=== PATIENT | female | born 1965 | race Caucasian/White ===

== ENCOUNTER 2024-02-26 10:35 | Inpatient (IN) | payer BC, SELFPAY ==
[2024-02-26] VITALS (11 sets, daily range): BP systolic 111–157; BP diastolic 55–88; BMI 22.6; BMI 21.8
--- NOTE | 2024-02-26 06:24 | ED.GENMED ---
History of Present Illness
General
Chief Complaint: Nasal Problem
Source: patient
Exam Limitations: none
Time Seen by Provider: 02/26/24 06:13
History of Present Illness
History of Present Illness:
See MDM
Past History
Past History
ED Past Medical History: Valvular disease and Other (agree with documented PMHX)
ED Past Surgical History: Cardiac (Bovine mitral valve replacement, 2005. Tricuspid valve repair. Atrial flutter ablation May 2006), Gynecological, Orthopedic (Carpal tunnel release left wrist) and Other (Breast lumpectomies, benign. Umbilical
hernia repair 08/2013.)
Social History
Tobacco: Non-smoker
Alcohol: None
Personal:
Living: with family
Employment: Employed
Family History
Family History: Hypertension
Phy Exam
Physical Exam
Physical Exam:
See MDM
Course
Orders/Labs/Results
Orders:
Orders
02/26/24 07:09
Type+Screen Urgent
Complete Blood Count/With Diff Urgent
Comprehensive Metabolic Panel Urgent
PTT Urgent
Prothrombin Time Urgent
02/26/24 07:17
ABO2 Urgent
BBK Wristband Number:
Associate notified that ABO2 has been ordered: [id number]
Date: 02/26/24
Time: 07:16
Glazier Artist ID: [id number]
02/26/24 07:24
Consult ENT [ENT CONSULT] Urgent
Consulting Provider: Trey Che
Was physician already notified: Yes
02/26/24 07:42
Morphine Sulfate 4 mg IV NOW STA
Ondansetron Injectable [Zofran] 4 mg IV NOW STA
02/26/24 07:46
Acetaminophen [Tylenol] 1,000 mg .ROUTE .STK-MED ONE
02/26/24 07:48
Acetaminophen [Tylenol] 1,000 mg PO NOW STA
Abnormal Lab Results
02/26/24
07:09
RBC 4.01 L 10^6/uL
(4.20-5.40)
Hgb 11.9 L g/dL
(12.0-16.0)
Hct 36.8 L %
(37.0-47.0)
MCHC 32.3 L g/dL
(33.0-37.0)
MPV 11.0 H fL
(7.4-10.4)
Absolute Lymphs (auto) 3.6 H 10^3/uL
(1.2-3.4)
Creatinine 0.5 L mg/dL
(0.6-1.0)
02/26/24 07:09
02/26/24 07:09
Vital Signs
Initial and Last Documented VS:
Initial Vital Signs
Pulse Resp BP Pulse Ox
71 18 157/88 98
02/26/24 06:11 02/26/24 06:11 02/26/24 06:11 02/26/24 06:11
Last Documented Vital Signs
Pulse Resp BP Pulse Ox
69 15 142/74 95
02/26/24 07:18 02/26/24 07:18 02/26/24 08:00 02/26/24 08:00
Procedures
Nosebleed
Drug treatment: Lidocaine and Epinephrine
Treatment: Posterior balloon
Post treatment bleeding: still some oozing
MDM/Problems Addressed
Differential Diagnosis Includes:
HPI and MDM Narrative:
58-year-old female presenting with significant nosebleed. Patient states this is her fourth nosebleed in the past week. She is on aspirin and Brilinta. Patient was told that if she has another nosebleed to go to the emergency department
immediately for cauterization. Patient was brought back immediately and has significant bleeding from the right nare. Patient states the blood is going down her throat and she is coughing up blood. Given the active hemorrhage, a nasal tampon was
placed immediately in her nose. It was soaked with lidocaine with epinephrine. This significantly slow down the bleeding
Physical exam
General: Mildly anxious but nontoxic-appearing
HEENT: protecting airway. Significant active bleeding from right nare
Neck: appears supple
CV: No evidence of cyanosis
Resp: No accessory muscle use
Abd: Non-distended
Extremities: No deformities
Neuro: alert
Psych: Anxious
Skin: Intact
Problems Addressed including Acute and Chronic Conditions affecting care:
1. Epistaxis
Acuity: acute
Prognosis: unstable
Details: Given the active hemorrhage, nasal tampon placed immediately
2. [ ]
Acuity: acute
Prognosis: stable
Details:
3. [ ]
Acuity: acute
Prognosis: stable
Details:
4. [ ]
Acuity: acute
Prognosis: stable
Details:
5. [ ]
Acuity:
Prognosis:
Details:
Updates
Patient continued to bleed through the 7.5 cm Rhino Rocket that was pretty soaked in lidocaine with epinephrine. Because of this, the decision was made to place the posterior packing. The posterior balloon and anterior balloon were both inflated.
Patient continues to bleed through the posterior packing. However, the bleeding has drastically improved and decreased by approximately 90 to 95%. Due to the persistent bleeding despite posterior packing, ENT made aware
8:55 AM Case discussed with ENT after evaluating the patient. Bleeding has drastically improved. We discussed admitting overnight for evaluation and starting Augmentin and holding Brilinta
Differential Diagnosis (but not limited to): Anterior nosebleed, posterior nose
Testing considered: Hemoglobin testing
Drug therapy (if applicable): OTC meds, please see d/c instruction regarding Rx drugs
Amount and/or Complexity of Data Reviewed
Clinical info obtained from: Patient
External data reviewed: N/A
Labs I independently reviewed (but not limited to): Mild anemia
Radiology: N/A
Pulse Ox: not hypoxic
EKG independently reviewed: N/A
Knitter Machine: N/A
Critical Care: N/A
Risk of Complication:
Social Determinants of health: Good social support
Discussed with other providers: ENT, hospitalist
Escalation of Care includes Admit/Obs: Given the significant amount of bleeding requiring posterior packing, will admit overnight for further evaluation
Occasional wrong word or 'sound a like' substitutions may have occurred due to the inherent limitations of voice recognition software. Read the chart carefully and recognize, using context, where substitutions have occurred.
*Critical Care Note
Total Time (30-74mins, 75-104mins- exclusive of procedures): Not Applicable
ED Attending Note
-
Portions of this chart may have been created with voice recognition software.� Occasional wrong word or��sound alike� substitutions may have occurred due to the inherent limitations of voice recognition software.
Discharge Plan
Departure
Patient Disposition: Admit
Date of Disposition: 02/26/24
Time of Disposition: 08:56
Admit to: Med/Surg
Presentation/result/management discussed w/ accepting MD/DO: Hospitalist
Discharge Problem:
Epistaxis
Prescriptions:
No Action
aspirin [Colleen Chewable Aspirin] 81 MG tablet,chewable
81 mg PO DAILY
infliximab [Remicade] 100 MG/10 ML recon soln
100 mg IV .[id number]
atorvastatin [Lipitor] 10 mg Tablet
20 mg PO DAILY
Brilinta 90 mg Tablet
90 mg PO BID
Referrals:
Carlo Fisher CRNP [Family Provider] -
Interventions
Interventions:
*Risk Screen - Suicide Last Done: 02/26/24 08:15
*General Assessment Last Done: 02/26/24 06:28
*Neglect/Abuse Screening Last Done: 02/26/24 08:15
ED- Fall Risk Assessment Last Done: 02/26/24 07:15
*ED COVID-19 Vaccine History Last Done: 02/26/24 06:28
ED-EENT Assessment Last Done: 02/26/24 07:15
Discharge Date and Time
Print Language: CZECH
[2024-02-26 07:19] LABS: % Basophils 1.3 % (0-2); % Immature Granulocytes 0.5 % (0-0.5); % Lymphocytes 43.1 % (20.5-51.1); % Monocytes 6.9 % (1.7-9.3); % Neutrophils 46.2 % (42.2-75.2); Absolute Basophils 0.1 10^3/uL (0-0.2); Absolute Eosinophils 0.2 10^3/uL (0-0.7); Absolute Lymphocytes 3.6 10^3/uL (1.2-3.4); Absolute Monocytes 0.6 10^3/uL (0.1-0.6); Absolute Neutrophils 3.9 10^3/uL (1.4-6.5); Hematocrit 36.8 % (37.0-47.0); Hemoglobin 11.9 g/dL (12.0-16.0); Mean Corp Hgb Conc. 32.3 g/dL (33.0-37.0); Mean Corpuscular Hgb 29.7 pg (27.0-31.0); Mean Corpuscular Volume 91.8 fL (81.0-99.0); Nucleated Red Blood Cells % 0 %; Platelet Count 208 10^3/uL (130-400); Red Blood Cell Count 4.01 10^6/uL (4.20-5.40); Red Cell Dist. Width 12.2 % (11.5-14.5); White Blood Cell Count 8.4 10^3/uL (4.8-10.8)
[2024-02-26 07:26] LABS: INR 0.94; PT 12.9 Sec (11.4-14.6)
[2024-02-26 07:27] LABS: APTT 27.3 Sec (23.4-35.0)
[2024-02-26 07:30] LABS: ALT (SGPT) 19 U/L (0-35); AST (SGOT) 28 U/L (14-36); Alkaline Phosphatase 52 U/L (38-126); Blood Urea Nitrogen 16 mg/dl (7-17); Calcium 9.3 mg/dl (8.4-10.2); Carbon Dioxide 27 mmol/L (22-30); Chloride 107 mmol/L (98-107); Estimated Creatinine Clearance 85 ml/min; Glucose 99 mg/dl (70-99); Sodium 142 mmol/L (135-145); Total Protein 6.6 g/dl (6.3-8.2); eGFR > 60.00
[2024-02-26] MEDS: TYLENOL 1000 MG PO (07:48)
[2024-02-26] MEDS: AUGMENTIN 875 MG/125 MG 1 TABLET PO (09:00)
--- NOTE | 2024-02-26 09:29 | CON.MD ---
Consultation - Medical
-
Chief complaint: Severe epistaxis
History of present illness: This is a 58-year-old woman with a history of open cardiac surgery with mitral valve replacement as well as a coronary stent. She is currently anticoagulated with Eliquis and has been for the last 3 months. Recently she
has been experiencing nosebleeds that she finds primarily occur when she gets out of bed. She has a history of nosebleeds in the distant past and also has a history of prior sinus surgery 30 years ago. This morning she presented to the emergency
room with a severe nosebleed on the right side which would not stop. Her nose was packed a couple of times and finally a posterior balloon pack has controlled the bleeding for the most part. The patient continued to ooze a little bit off and on.
She is otherwise doing well. The pack on the right side is uncomfortable and she can feel that it interferes with her swallowing a little bit. She continues to ooze blood a little bit off and on. The patient also has a history of Crohn's disease.
She underwent cardiac stent placement about 4 months ago. She had undergone stent placement in the past.
Past medical history:
Illnesses: Epistaxis, acute diverticulitis, coronary artery disease, hyperlipidemia, acute Crohn's disease,
Allergies: Lactose causes cramping diarrhea and gas, morphine and hydromorphone caused vomiting
Family history: Asked and is noncontributory
Hospitalization: The patient is currently hospitalized for severe epistaxis requiring packing with continued oozing off and on.
Home medications: Aspirin 81 mg p.o. daily, a atorvastatin 20 mg p.o. daily, Remicade 100 mg IV q. 7 weeks, Brilinta 90 mg p.o. twice daily
Surgical history: The patient had sinus surgery 30 years ago
Review of systems: Recent recurrent epistaxis on the right side with severe bleeding this morning, currently has packing in place with a small amount of oozing, some discomfort with nasal packing
Physical examination:
Head: Atraumatic and normocephalic
Eyes: Extraocular movements are intact, pupils are equal and reactive to light
Ears: Normal
Nose: Balloon packing in place on the right side with minimal occasional ooze, some blood in left nostril along with mucus
Oral cavity/oropharynx: Very small amount of clotted blood in oropharynx
Neck: Supple without adenopathy
Thyroid gland: Normal to exam
Salivary glands: Normal to exam
Cranial nerves II through XII: Intact
Impression/plan: This 58-year-old woman has a history of cardiac disease and is status post several cardiac surgeries as well as stent placement. She is chronically anticoagulated with Brilinta. She has been experiencing recurrent bleeding from
the right nose and experienced a severe bleed this morning requiring a posterior pack placement. She continues to ooze a little bit off and on. I discussed with the emergency room staff and with the patient that this oozing off and on is normal in
some people for a while after the packing is placed particularly if they are anticoagulated. I suggested that the patient be admitted for observation with minimal activity. Her Brilinta should be held for several days. I will plan on following
the patient.
--- NOTE | 2024-02-26 10:05 | HPS.HSE ---
Family Physician
-
Family Physician: GISELLE Duval
Chief Complaint
-
Nosebleed
History of Present Illness
Patient is a 58-year-old female with past medical history of coronary artery disease status post PCI/stenting, last in 26 october in hospital on [place], history of SVT/a flutter with multiple ablations, history of mitral valve insufficiency
status post repair with revision x 2, history of Crohn's disease on Remicade, remote history of epistaxis, hyperlipidemia came to ER with new onset of epistaxis. Patient has been dealing with worsening nosebleed for last for 4-5 days. Patient
continue to have worsening nosebleed with some postnasal drip and came to ER for further evaluation. Patient have history of multiple cardiac issues and have undergone PCI/stent placement on October 19 in hospital in [place]. Patient was
maintained on aspirin and Brilinta as part of the post catheter regimen. Patient is denying any episodes of cough/fever/dyspnea.
No other reported abdominal pain/nausea/vomiting/diarrhea. No complains.
Medical History
Past Medical History
Past Medical History: Reports Other
Additional Past Medical History:
coronary artery disease status post PCI/stenting, last in 26 october in hospital on [place], history of SVT/a flutter with multiple ablations, history of mitral valve insufficiency status post repair with revision x 2, history of Crohn's
disease on Remicade, remote history of epistaxis, hyperlipidemia
Past Surgical History: Reports Other
Social History
Tobacco: Non-smoker
Alcohol: None
Drug: None
Personal:
Living: With Family
Family History
Family History: Not pertinent
Allergies / Home Medications
Allergies reflects when Allergies were last updated in codetag.
Home Medications with original date entered in codetag
Allergy/Medication List:
Allergies
Allergy/AdvReac Type Severity Reaction Status Date / Time
lactose Allergy Intermediate Diarrhea, Verified 02/26/24 06:11
cramping,
gas
hydromorphone HCl Allergy Unknown Vomiting Verified 02/26/24 06:11
[From Dilaudid]
morphine Allergy Vomiting Verified 02/26/24 06:11
Home Medications
aspirin 81 mg chewable tablet (Colleen Chewable Low Dose Aspirin) 81 mg PO DAILY 01/26/14
infliximab 100 mg intravenous solution (Remicade) 100 mg IV .[id number] 12/26/17
atorvastatin 10 mg tablet (Lipitor) 20 mg PO DAILY 10/19/22
ticagrelor 90 mg tablet (Brilinta) 90 mg PO BID 02/26/24
Review of Systems
-
A 12 point ROS was completed and negative except as noted: Yes
Physical Exam
Vital Signs
Vital Signs
Pulse Resp BP Pulse Ox
69 15 111/78 96
02/26/24 07:18 02/26/24 07:18 02/26/24 09:00 02/26/24 09:00
Physical Exam
HEENT: Other (Right nostril packing in place, fresh blood on the gauze, minimal blood covering posterior oropharynx)
Respiratory: Clear
Cardiac: S1/S2 and Regular Rhythm; No Murmur or Rub
GI: Soft, Non Tender, Non Distended and Normal Bowel Sounds; No Organomegaly
Rectal: Deferred by Provider
Musculoskeletal: No Clubbing, No Cyanosis and No Edema
Skin: No Rash
Neuro: Nonfocal/grossly intact
Laboratory Results
-
02/26/24 07:09
02/26/24 07:09
Laboratory Results
PT 12.9 Sec (11.4-14.6) 02/26/24 07:09
INR 0.94 02/26/24 07:09
APTT 27.3 Sec (23.4-35.0) 11/30/24 07:09
Total Bilirubin 1.0 mg/dl (0.2-1.3) 02/26/24 07:09
AST 28 U/L (14-36) 02/26/24 07:09
ALT 19 U/L (0-35) 02/26/24 07:09
Alkaline Phosphatase 52 U/L (38-126) 02/26/24 07:09
Impression/Plan
-
1. Epistaxis
remote history of epistaxis
-Significant ruben bleeding from nose. Reported postnasal drip as well
-Likely exacerbated by aspirin/Brilinta
-Patient have undergone stent placement (presuming SAIRA) on October 26, 24 - 4months today from stent placement
-will need to resume back antiplatelets once bleeding resolved
-Hemoglobin stable at 12, expect to drift down a few points
-Nasal packing has been done by ER physician and patient has been evaluated in ER by ENT
-Maintain on clear liquid diet and can be advanced to regular diet later at supper if bleeding improved.
-Patient to be monitored here in hospital overnight
2. coronary artery disease status post PCI/stenting
-last in 26 october in hospital on [place]
-Aspirin/Brilinta to be held as mentioned above.
-Monitor for any cardiac complains.
history of SVT/a flutter with multiple ablations
history of mitral valve insufficiency status post repair with revision x 2
history of Crohn's disease on Remicade
hyperlipidemia
DVT PPX - scd
Full code
Patient at high risk of further complication of epistaxis related issues due to need of dual antiplatelet therapy
Total time spent : 78 mins
I personally saw and examined the patient.
I have reviewed all diagnostic interpretations and treatment plans as written.
Time includes patient management by me, time spent at the patients bedside, time to review lab and imaging results, discussing patient care, documentation in the medical record, and time spent with the family or caregiver and discussing care plan
with RN/Consultants.
[2024-02-26] MEDS: ZOFRAN 4 MG IV (10:55)
[2024-02-26] MEDS: NSS (PRESERVATIVE FREE) 10 ML IV (12:24)
[2024-02-26] MEDS: PROTONIX IV 40 MG IV (12:25)
--- NOTE | 2024-02-26 13:08 | PTCARENOTE ---
Received patient from ED on stretcher. Walked from stretcher to bed with standby assist. Placed on tel #[phone] A paced. AAO x3 able to make needs known. R nare with posterior balloon packing in place with CDD, no active drainage noted. VSS POX 98% RA.
Oriented to room and use of call florence. As per patient request Cristiano suction set up at bedside. PRN Tylenol given for headache.
[2024-02-26] MEDS: TYLENOL 650 MG PO ×2 (13:33→22:46)
--- NOTE | 2024-02-26 20:47 | PTCARENOTE ---
Addendum entered by Sharon Nick RN 02/27/24 02:23:
Pt external gauze dressing changed due to being saturated and leaking blood. Pt right nare has visible clots. Dressing changed without complications or active bleeding and remains CDI. Pt educated on notifying RN deloris if bleeding continues.
Original Note:
Pt rang call florence for nose bleed restarting. STOPPERER ASSEMBLER notified and requested at bedside. Pt nose bleeding through bilateral nare balloon packing. Pressure applied and VS obtained. VSS. STOPPERER ASSEMBLER evaluated pt at bedside and notified ENT MD. After a moderate
amount of bleeding and pressure applied bleeding resolved and pt stable. Suction remains at bedside. Pt provided with ice pack as she stated it previously helped with her headache as well as the bleeding. Pt. states no further needs at this time. Pt
instructed to notify RN if bleeding starts again.
[2024-02-27 03:00] VITALS: BP 123/67
[2024-02-27] MEDS: TYLENOL 650 MG PO ×2 (05:30→19:29)
[2024-02-27 07:40] VITALS: BP 116/67
[2024-02-27 07:40] LABS: Hematocrit 33.9 % (37.0-47.0); Mean Corp Hgb Conc. 32.4 g/dL (33.0-37.0); Mean Corpuscular Hgb 30.3 pg (27.0-31.0); Mean Corpuscular Volume 93.4 fL (81.0-99.0); Mean Platelet Volume 11.1 fL (7.4-10.4); Platelet Count 185 10^3/uL (130-400); Red Blood Cell Count 3.63 10^6/uL (4.20-5.40); Red Cell Dist. Width 12.4 % (11.5-14.5); White Blood Cell Count 9.9 10^3/uL (4.8-10.8)
[2024-02-27 07:51] LABS: Blood Urea Nitrogen 10 mg/dl (7-17); Calcium 9.2 mg/dl (8.4-10.2); Carbon Dioxide 29 mmol/L (22-30); Chloride 105 mmol/L (98-107); Estimated Creatinine Clearance 85 ml/min; Glucose 96 mg/dl (70-99); Sodium 142 mmol/L (135-145); eGFR > 60.00
[2024-02-27] MEDS: LIPITOR 20 MG PO (08:14)
[2024-02-27] MEDS: NSS (PRESERVATIVE FREE) 10 ML IV (08:14)
[2024-02-27] MEDS: PROTONIX IV 40 MG IV (08:15)
--- NOTE | 2024-02-27 09:40 | W.PN.HOSP.TC ---
Today's Communication/Plan
-
see note
Assessment / Plan
Assessment / Plan
1. Epistaxis
remote history of epistaxis
-Significant ruben bleeding from nose. Reported postnasal drip as well
-Likely exacerbated by aspirin/Brilinta
-Patient have undergone stent placement (presuming SAIRA) on October 26, 24 - 4months today from stent placement
-will need to resume back antiplatelets once bleeding resolved
-Nasal packing has been done by ER physician and patient has been evaluated in ER by ENT
-Hbg trended down to 11, was 12 yesterday
-Requested patient to contact/f/u with primary cardiology to consider if DAPT can be shortened.
-Bleeding slowed down, patient hesistant to go out with concern of rebleed, monitor overnight
-diet advanced to regular diet.
2. coronary artery disease status post PCI/stenting
-last in 26 october in hospital on [place]
-Aspirin/Brilinta to be held as mentioned above.
-No chest discomfort/dyspnea/pain reported
3. Dry cough
-suspected from post nasal drip
-agreeable to try cepacol lozenges
-CXR if develops fever/hypoxia
history of SVT/a flutter with multiple ablations
history of mitral valve insufficiency status post repair with revision x 2
history of Crohn's disease on Remicade
hyperlipidemia
DVT PPX - scd
Full code
Patient at high risk of further complication of epistaxis related issues due to need of dual antiplatelet therapy
Anticipated Discharge: Within 24 hours
Subjective/Interval History
-
Date of Service: February 27, 2024
bleeding has decreased but still ongoing
some dry cough from post nasal drip
Objective Data
-
Labs:
Laboratory Results
02/27/24
06:50
WBC 9.9
Hgb 11.0 L
Hct 33.9 L
Plt Count 185
Sodium 142
Potassium 4.0
Chloride 105
Carbon Dioxide 29
BUN 10
Creatinine 0.6
Glucose 96
Calcium 9.2
Vital Signs:
Vital Signs
Temp Pulse Resp BP Pulse Ox
97.5 F 61 16 116/67 96
02/27/24 07:40 02/27/24 07:40 02/27/24 07:40 02/27/24 07:40 02/27/24 07:40
I&O
02/26/24 02/27/24 02/28/24
06:59 06:59 06:59
Intake Total 960 / 960
Balance 960 / 960
Review of Systems
-
Respiratory: Reports Cough; Denies Trouble Breathing
Cardiac: Reports No Symptoms
Abdomen/GI: Reports No Symptoms
Physical Exam
-
General: No Apparent Distress and Comfortable
HEENT: Other (Right nasal packing in place, dried blood around nares); Negative Oxygen
Respiratory: Clear to Auscultation
Cardiac: Regular Rhythm and S1/S2; Negative Murmur or Rub
Musculoskeletal: No Edema
Neuro: Awake, Alert, Oriented, No Motor Deficits and Nonfocal/Grossly Intact
Psych: Calm
--- NOTE | 2024-02-27 10:22 | CM ---
CM following re: discharge planning.
Reviewed pt's chart, met with pt.
Pt is a 58 year old female, admitted with primary dx of Epistaxis.
Pt reports she lives with son and his family in a 2SH, 1 step to enter, has 2 supportive children. Pt described herself as independent in all areas [employer], drives, works.
PCP: Cole Stacy
Pharmacy: [facility]
D/C plan: home with anticipated no needs. Family to transport at discharge.
CM will follow with discharge plan updates as hospitalization progresses
--- NOTE | 2024-02-27 10:37 | W.PN.ENT ---
Today's Communication
-
pt seen at bedside
Impression / Plan
-
doing OK s/p nasal packing in ER yesterday
not currently bleeding but has off and on mild bleeding
hold Brilinta
will observe
Subjective Data
-
small amount of bleeding off and on
not actively bleeding
balloon packing uncomfortable
Objective Data
-
Vital Signs
Temp Pulse Resp BP Pulse Ox
97.5 F 61 16 116/67 96
02/27/24 07:40 02/27/24 07:40 02/27/24 07:40 02/27/24 07:40 02/27/24 07:40
Intake & Output
02/26/24 02/27/24 02/28/24
06:59 06:59 06:59
Intake:
Oral fluids 960 / 960
Other:
Number of approximated MODERATE 4
amounts of urine
Lab Results
02/27/24 06:50
02/27/24 06:50
PT 12.9 Sec (11.4-14.6) 02/26/24 07:09
INR 0.94 02/26/24 07:09
APTT 27.3 Sec (23.4-35.0) 02/26/24 07:09
Calcium 9.2 mg/dl (8.4-10.2) 02/27/24 06:50
Total Bilirubin 1.0 mg/dl (0.2-1.3) 02/26/24 07:09
AST 28 U/L (14-36) 02/26/24 07:09
ALT 19 U/L (0-35) 02/26/24 07:09
Alkaline Phosphatase 52 U/L (38-126) 02/26/24 07:09
Physical Exam
-
packing in place
no active bleeding
Chest: Clear
Respiratory: Clear
Data Reviewed
-
Radiology Results: Report Reviewed
[2024-02-27 11:40] VITALS: BP 113/49
[2024-02-27 15:40] VITALS: BP 124/59
[2024-02-27] MEDS: ANESTHETIC LOZENGE 1 LOZENGE PO (15:46)
[2024-02-27 19:14] VITALS: BP 113/59
[2024-02-27 22:45] VITALS: BP 105/62
[2024-02-28 04:02] VITALS: BP 124/58
[2024-02-28] MEDS: TYLENOL 650 MG PO ×3 (05:54→20:37)
[2024-02-28 07:10] LABS: Hemoglobin 10.9 g/dL (12.0-16.0); Mean Corpuscular Hgb 29.9 pg (27.0-31.0); Mean Corpuscular Volume 90.7 fL (81.0-99.0); Mean Platelet Volume 11.2 fL (7.4-10.4); Platelet Count 184 10^3/uL (130-400); Red Blood Cell Count 3.64 10^6/uL (4.20-5.40); Red Cell Dist. Width 12.2 % (11.5-14.5); White Blood Cell Count 11.9 10^3/uL (4.8-10.8)
[2024-02-28 07:22] LABS: Blood Urea Nitrogen 13 mg/dl (7-17); Calcium 9.1 mg/dl (8.4-10.2); Carbon Dioxide 30 mmol/L (22-30); Chloride 104 mmol/L (98-107); Estimated Creatinine Clearance 85 ml/min; Glucose 103 mg/dl (70-99); Sodium 141 mmol/L (135-145); eGFR > 60.00
[2024-02-28 07:45] VITALS: BP 125/56
[2024-02-28] MEDS: NSS (PRESERVATIVE FREE) 10 ML IV (08:22)
[2024-02-28] MEDS: LIPITOR 20 MG PO (08:22)
[2024-02-28] MEDS: PROTONIX IV 40 MG IV (08:22)
--- NOTE | 2024-02-28 08:39 | W.PN.HOSP.TC ---
Today's Communication/Plan
-
Monitor
Assessment / Plan
Assessment / Plan
1. Epistaxis with acute blood loss anemia
remote history of epistaxis
-Significant ruben bleeding from nose. Reported postnasal drip as well
-Likely exacerbated by aspirin/Brilinta
-Patient have undergone stent placement (presuming SAIRA) on October 26, 24 - 4months today from stent placement
-will need to resume back antiplatelets once bleeding resolved
-Nasal packing has been done by ER physician and patient has been evaluated in ER by ENT
-Hbg 10.9 today, was 11, was 11.9
-Appreciate ENT input, continue holding aspirin 81 mg and Brilinta 90 mg twice a day
-Continue to monitor, trend hemoglobin
2. Coronary artery disease status post PCI/stenting
-last in 26 october in hospital on [place]
-Aspirin/Brilinta to be held as mentioned above.
-No chest discomfort/dyspnea/pain reported
3. Dry cough
-suspected from post nasal drip
-agreeable to try cepacol lozenges
4. Constipation
Start laxatives
history of SVT/a flutter with multiple ablations
history of mitral valve insufficiency status post repair with revision x 2
history of Crohn's disease on Remicade
hyperlipidemia
DVT PPX - SCDs
Full code
Total time spent to see the patient on the floor, examine the patient, review data and lab results, discuss treatment plan with patient, nursing staff around 38 minutes.
Physical Exam
General: No acute distress
HEENT: Normocephalic, Atraumatic, EOMI, MMM
Respiratory: Clear to Auscultation bilaterally
Cardiac: Normal S1/S2, Regular Rate and Rhythm
GI: Soft, Nontender, Nondistended, Normal Bowel Sounds
Extremities: No Clubbing, Cyanosis, or Edema
Neuro: Nonfocal/Grossly Intact
Psych: Calm, Cooperative
Derm: No Visible lesions
Anticipated Discharge: 24 - 48 hours
Subjective/Interval History
-
Date of Service: February 28, 2024
Complains of constipation. Also reports intermittent epistaxis with walking. No fever, no vomiting.
Objective Data
-
Labs:
Laboratory Results
02/28/24
06:44
WBC 11.9 H
Hgb 10.9 L
Hct 33.0 L
Plt Count 184
Sodium 141
Potassium 4.0
Chloride 104
Carbon Dioxide 30
BUN 13
Creatinine 0.5 L
Glucose 103 H
Calcium 9.1
Vital Signs:
Vital Signs
Temp Pulse Resp BP Pulse Ox
97.6 F 61 16 125/56 96
02/28/24 07:45 02/28/24 07:45 02/28/24 07:45 02/28/24 07:45 02/28/24 07:45
I&O
02/27/24 02/28/24 02/29/24
06:59 06:59 06:59
Intake Total 960 / 960 720 / 720 480 / 480
Balance 960 / 960 720 / 720 480 / 480
--- NOTE | 2024-02-28 11:50 | W.PN.ENT ---
Today's Communication
-
seen at bedside
Impression / Plan
-
doing OK s/p nasal packing in ER Wednesday
not currently bleeding but has off and on mild bleeding
hold Brilinta
will observe
Subjective Data
-
smonimal driping with ambulation
not actively bleeding
balloon packing uncomfortable
Objective Data
-
Vital Signs
Temp Pulse Resp BP Pulse Ox
97.6 F 61 16 125/56 96
02/28/24 07:45 02/28/24 07:45 02/28/24 07:45 02/28/24 07:45 02/28/24 07:45
Intake & Output
02/27/24 02/28/24 02/29/24
06:59 06:59 06:59
Intake:
Oral fluids 960 / 960 720 / 720 480 / 480
Other:
Number of approximated MODERATE 4 3 2
amounts of urine
Number of approximated LARGE 1
amounts of urine
Lab Results
02/28/24 06:44
02/28/24 06:44
PT 12.9 Sec (11.4-14.6) 02/26/24 07:09
INR 0.94 02/26/24 07:09
APTT 27.3 Sec (23.4-35.0) 02/26/24 07:09
Calcium 9.1 mg/dl (8.4-10.2) 02/28/24 06:44
Total Bilirubin 1.0 mg/dl (0.2-1.3) 02/26/24 07:09
AST 28 U/L (14-36) 02/26/24 07:09
ALT 19 U/L (0-35) 02/26/24 07:09
Alkaline Phosphatase 52 U/L (38-126) 02/26/24 07:09
Physical Exam
-
pack in place
no active bleeding
Chest: Clear
Respiratory: Clear
Data Reviewed
-
Radiology Results: Report Reviewed
[2024-02-28 11:55] VITALS: BP 116/55
[2024-02-28] MEDS: SENOKOT-S 2 TABLET PO ×2 (11:58→20:37)
[2024-02-28] MEDS: MIRALAX 17 GRAMS PO (11:59)
[2024-02-28 16:00] VITALS: BP 107/55
[2024-02-28] MEDS: REFRESH EYE DROPS (PF) 2 DROPS OPHTH ×2 (17:56→20:37)
[2024-02-28 19:05] VITALS: BP 112/50
[2024-02-28] MEDS: AFRIN NASAL SPRAY 2 SPRAYS NASAL (22:34)
[2024-02-28 23:06] VITALS: BP 127/58
[2024-02-28] MEDS: TRANEXAMIC ACID 100 IV (23:21)
--- NOTE | 2024-02-28 23:56 | W.PN.ENT ---
Today's Communication
-
seen at bedside
Impression / Plan
-
Balloon pack fell out before arrival
cotton ball coated with vaseline placed into nose
bleeding controlled
Subjective Data
-
called to see pt with epistaxis
bleeding for 2 hours
Objective Data
-
Vital Signs
Temp Pulse Resp BP Pulse Ox
98.0 F 65 16 127/58 97
02/28/24 19:05 02/28/24 23:06 02/28/24 23:06 02/28/24 23:06 02/28/24 23:06
Intake & Output
02/27/24 02/28/24 02/29/24
06:59 06:59 06:59
Intake:
Oral fluids 960 / 960 720 / 720 1320 / 1320
Other:
Number of approximated MODERATE 4 3 4
amounts of urine
Number of approximated LARGE 1
amounts of urine
Lab Results
02/28/24 06:44
02/28/24 06:44
PT 12.9 Sec (11.4-14.6) 02/26/24 07:09
INR 0.94 02/26/24 07:09
APTT 27.3 Sec (23.4-35.0) 02/26/24 07:09
Calcium 9.1 mg/dl (8.4-10.2) 02/28/24 06:44
Total Bilirubin 1.0 mg/dl (0.2-1.3) 02/26/24 07:09
AST 28 U/L (14-36) 02/26/24 07:09
ALT 19 U/L (0-35) 02/26/24 07:09
Alkaline Phosphatase 52 U/L (38-126) 02/26/24 07:09
Physical Exam
-
bleeding but not severe, right nose
Chest: Clear
Respiratory: Clear
Data Reviewed
-
Radiology Results: Report Reviewed
[2024-02-29] MEDS: ZOFRAN 4 MG IV (00:03)
--- NOTE | 2024-02-29 02:10 | W.PN.UPDATE ---
Addendum entered and electronically signed by GISELLE Nielsen 02/29/24 02:32:
afrin nasal spray was also attempted in right nare to slow bleeding
Original Note:
Update Note
Progress Note Update
2100 Notified by RN that pt having continuos epistaxis despite having posterior packing on place.
At bedside pt with continuos dripping and clots coming out of right nare. Posterior packing in place since 02/26/24. Since admit pt states she has had some mild oozing but this time after ambulating from bathroom bleeding has not stopped despite
putting pressure to bridge of nose and ice packs Rn states she has changed gauze under nose at least 5 times prior to my arrival. Blood is dripping down back of throat. PT is suctioning thick clots out from mouth.
[address] Patten ENT commercial litigation associate. for recommendations.
Added approx 0.4 ml to 10cc side of Posterior packing but pt could not tolerate well due to pain and pressure. PT held pressure to nares and for a few min we thought bleeding slowed, but as soon as pt released pressure, nasal dressing again
saturated.
0 TT again sent to Dr Patten (priority sent). Awaiting response. Throughout this time pt still bleeding around posterior packing . Vital signs stable throughout.
[address] patten via telephone and message left for callback deloris. No return call. After not hearing any responses- decision made to TT his colleague Dr Che who is familiar with pt. Asked if this airplane flight attendant should give pt TXA - recommends to give.
Shortly thereafter Dr che returned TT and stated he was coming in.
Shortly before Dr che's arrival pt stated posterior packing fell out of her nose (intact with balloons deflated). After that bleeding noted to slow. At bedside Dr che packed nostrils with polysporin covered cotton balls. PT was checked after
several min to see if cotton ball was sufficient to stop bleeding. No more bleeding noted.
[2024-02-29 03:10] VITALS: BP 109/56
--- NOTE | 2024-02-29 05:57 | PTCARENOTE ---
at approx 2019, pt rang call florence to alert this RN about new nosebleed after ambulating to and from the bathroom. changed gauze, applied ice to bridge of nose and back of pt's neck, instructed pt to remain in bed. By 2099, gauze was saturated and
changed multiple times, pt suctioning dime and quarter sized blood clots from her mouth, GISELLE Stewart made aware. VSS. GISELLE Stewart & GISELLE Aldana at bedside at bedside to assess patient. Pt continues to suction blood clots from mouth and also
dripping bright red blood from R nare. Awaiting response from on-call ENT. Pt's VSS. At approx 2230, Afrin spray ordered and administered, refer to MAR. Bleeding continues, saturating gauze under nares. At approx 2320, Tranexamic Acid ordered, refer
to MAR for administration. At approx 2330 pt rang call florence and alerted this RN that previous nasal packing fell out of her nose.
At approx 2330, Dr. Che at bedside and re-packed right nare with polysporin cotton balls.
Pt c/o nausea, refer to MAR for zofran administration at approx 0000.
Throughout the night, pt's gauze remains clean, no signs of active bleeding once cotton balls were placed.
Pt remains updated on POC. VSS. Call naman within reach.
[2024-02-29] MEDS: NSS (PRESERVATIVE FREE) 10 ML IV (07:40)
[2024-02-29] MEDS: MIRALAX PO ×2 (07:40→07:49)
[2024-02-29] MEDS: LIPITOR 20 MG PO (07:40)
[2024-02-29] MEDS: REFRESH EYE DROPS (PF) 2 DROPS OPHTH ×4 (07:40→21:43)
[2024-02-29] MEDS: SENOKOT-S 2 TABLET PO ×2 (07:40→20:21)
[2024-02-29] MEDS: PROTONIX IV 40 MG IV (07:41)
[2024-02-29 08:03] VITALS: BP 112/61
[2024-02-29 08:17] LABS: Hematocrit 31.2 % (37.0-47.0); Hemoglobin 10.1 g/dL (12.0-16.0); Mean Corp Hgb Conc. 32.4 g/dL (33.0-37.0); Mean Corpuscular Hgb 30.4 pg (27.0-31.0); Mean Platelet Volume 11.4 fL (7.4-10.4); Platelet Count 166 10^3/uL (130-400); Red Blood Cell Count 3.32 10^6/uL (4.20-5.40); Red Cell Dist. Width 12.4 % (11.5-14.5); White Blood Cell Count 11.2 10^3/uL (4.8-10.8)
--- NOTE | 2024-02-29 08:50 | W.PN.HOSP.TC ---
Today's Communication/Plan
-
see bold
Assessment / Plan
Assessment / Plan
1. Epistaxis with acute blood loss anemia
remote history of epistaxis
-Significant ruben bleeding from nose. Reported postnasal drip as well
-Likely exacerbated by aspirin/Brilinta
-Patient had stent placement (presuming [facility]IRA) on October 26 24, we are 4 months from stent placement
-Will need to resume back antiplatelets once bleeding resolved
-Nasal packing fell out 12/2 PM, ENT placed cotton ball coated with vaseline into nose, hemostasis achieved
-Hbg 10.1 today, was 11, was 11.9
-Appreciate ENT input, continue holding aspirin 81 mg and Brilinta 90 mg twice a day
-Continue to monitor, trend hemoglobin
2. Coronary artery disease status post PCI/stenting
-last in 26 october in hospital on [place]
-Aspirin/Brilinta to be held as mentioned above.
-No chest discomfort/dyspnea/pain reported
3. Dry cough
-suspected from post nasal drip
-cepacol lozenges prn
4. Constipation
Started laxatives
5. Fungal rash underneath breast folds
Start antifungal creams/powder
history of SVT/a flutter with multiple ablations
history of mitral valve insufficiency status post repair with revision x 2
history of Crohn's disease on Remicade
hyperlipidemia
DVT PPX - SCDs
Full code
Total time spent to see the patient on the floor, examine the patient, review data and lab results, discuss treatment plan with patient, nursing staff around 40minutes.
Physical Exam
General: No acute distress
HEENT: Normocephalic, Atraumatic, EOMI, MMM
Respiratory: Clear to Auscultation bilaterally
Cardiac: Normal S1/S2, Regular Rate and Rhythm
GI: Soft, Nontender, Nondistended, Normal Bowel Sounds
Extremities: No Clubbing, Cyanosis, or Edema
Neuro: Nonfocal/Grossly Intact
Psych: Calm, Cooperative
Derm: Erythema and moistness noted under bilateral breast folds
Anticipated Discharge: 24 - 48 hours
Subjective/Interval History
-
Date of Service: February 29, 2024
Overnight events noted. Patient had bleeding last night, her packing fell out. ENT came in and repacked her nose with cotton balls. She does have a rash underneath her left breast. No fever, no vomiting.
Objective Data
-
Labs:
Laboratory Results
02/29/24
06:52
WBC 11.2 H
Hgb 10.1 L
Hct 31.2 L
Plt Count 166
Vital Signs:
Vital Signs
Temp Pulse Resp BP Pulse Ox
97.7 F 61 16 112/61 96
02/29/24 08:03 02/29/24 08:03 02/29/24 08:03 02/29/24 08:03 02/29/24 08:03
I&O
02/28/24 02/29/24 03/01/24
06:59 06:59 06:59
Intake Total 720 / 720 2280 / 2280
Balance 720 / 720 2280 / 2280
[2024-02-29 11:10] VITALS: BP 107/47
[2024-02-29 15:10] VITALS: BP 108/49
[2024-02-29] MEDS: DESENEX/MITRAZOL/ZEASORB 1 APPLIC TOPICAL ×2 (17:38→20:21)
[2024-02-29] MEDS: MYCOSTATIN CREAM 1 APPLIC TOPICAL (17:39)
--- NOTE | 2024-02-29 17:42 | CM ---
Reviewed chart, patient still requiring acute level of care. Will return home when stable.
Plan: Case management will continue to follow and assist with discharge planning. Home when medically cleared.
--- NOTE | 2024-02-29 18:07 | W.PN.ENT ---
Today's Communication
-
seen at bedside
Impression / Plan
-
bleeding better controlled with cotton ball in nose
keep cotton ball in place
OK from ENT standpoint for discharge tomorrow if no bleeding
Subjective Data
-
no bleeding since nose packed with cotton ball
Objective Data
-
Vital Signs
Temp Pulse Resp BP Pulse Ox
97.6 F 61 14 108/49 96
02/29/24 15:10 02/29/24 15:10 02/29/24 15:10 02/29/24 15:10 02/29/24 15:10
Intake & Output
02/28/24 02/29/24 03/01/24
06:59 06:59 06:59
Intake:
Oral fluids 720 / 720 2280 / 2280 480 / 480
Other:
Number of approximated SMALL 1
amounts of urine
Number of approximated MODERATE 3 1 1
amounts of urine
Number of approximated LARGE 1 1
amounts of urine
Lab Results
02/29/24 06:52
02/28/24 06:44
PT 12.9 Sec (11.4-14.6) 02/26/24 07:09
INR 0.94 02/26/24 07:09
APTT 27.3 Sec (23.4-35.0) 02/26/24 07:09
Calcium 9.1 mg/dl (8.4-10.2) 02/28/24 06:44
Total Bilirubin 1.0 mg/dl (0.2-1.3) 02/26/24 07:09
AST 28 U/L (14-36) 02/26/24 07:09
ALT 19 U/L (0-35) 02/26/24 07:09
Alkaline Phosphatase 52 U/L (38-126) 02/26/24 07:09
Physical Exam
-
no bleeding or blood in mouth/pharynx
Chest: Clear
Respiratory: Clear
Data Reviewed
-
Radiology Results: Report Reviewed
[2024-02-29 23:00] VITALS: BP 119/47
[2024-03-01 07:24] VITALS: BP 105/53
[2024-03-01 07:46] LABS: Hematocrit 30.5 % (37.0-47.0); Hemoglobin 10.3 g/dL (12.0-16.0); Mean Corp Hgb Conc. 33.8 g/dL (33.0-37.0); Mean Corpuscular Hgb 30.6 pg (27.0-31.0); Mean Corpuscular Volume 90.5 fL (81.0-99.0); Mean Platelet Volume 11.6 fL (7.4-10.4); Platelet Count 176 10^3/uL (130-400); Red Blood Cell Count 3.37 10^6/uL (4.20-5.40); Red Cell Dist. Width 12.2 % (11.5-14.5); White Blood Cell Count 9.3 10^3/uL (4.8-10.8)
[2024-03-01] MEDS: LIPITOR 20 MG PO (08:12)
[2024-03-01] MEDS: SENOKOT-S 2 TABLET PO (08:12)
[2024-03-01] MEDS: REFRESH EYE DROPS (PF) 2 DROPS OPHTH ×3 (08:12→17:48)
[2024-03-01] MEDS: DESENEX/MITRAZOL/ZEASORB 1 APPLIC TOPICAL (08:13)
[2024-03-01] MEDS: MIRALAX 17 GRAMS PO (08:13)
[2024-03-01] MEDS: PROTONIX 40 MG PO (08:15)
--- NOTE | 2024-03-01 08:40 | W.PN.HOSP.TC ---
Today's Communication/Plan
-
Stable for discharge today
Assessment / Plan
Assessment / Plan
1. Epistaxis with acute blood loss anemia
remote history of epistaxis
-Significant ruben bleeding from nose. Reported postnasal drip as well
-Likely exacerbated by aspirin/Brilinta
-Patient had stent placement (presuming SAIRA) on October 26, we are 4 months from stent placement
-Will need to resume back antiplatelets once bleeding resolved
-Nasal packing fell out 12/2 PM, ENT placed cotton ball coated with vaseline into nose, hemostasis achieved
-Hbg 10.3 today, was 10.1, was 11, was 11.9
-Appreciate ENT input, she is medically stable for discharge
-Can resume aspirin 03/02, resume Brilinta 03/04
-Follow-up with ENT in the office next week
2. Coronary artery disease status post PCI/stenting
-last in 26 october in hospital on [place]
-Aspirin/Brilinta to be held as mentioned above.
-No chest discomfort/dyspnea/pain reported
3. Dry cough
-suspected from post nasal drip
-cepacol lozenges prn
4. Constipation
Resolved with laxatives
5. Fungal rash underneath breast folds
Continue antifungal creams/powder -she has these at home
history of SVT/a flutter with multiple ablations
history of mitral valve insufficiency status post repair with revision x 2
history of Crohn's disease on Remicade
hyperlipidemia
DVT PPX - SCDs
Full code
Physical Exam
General: No acute distress
HEENT: Normocephalic, Atraumatic, EOMI, MMM
Respiratory: Clear to Auscultation bilaterally
Cardiac: Normal S1/S2, Regular Rate and Rhythm
GI: Soft, Nontender, Nondistended, Normal Bowel Sounds
Extremities: No Clubbing, Cyanosis, or Edema
Neuro: Nonfocal/Grossly Intact
Psych: Calm, Cooperative
Derm: Erythema and moistness noted under bilateral breast folds
Anticipated Discharge: Today
Subjective/Interval History
-
Date of Service: March 01, 2024
No more recurrence of epistaxis. She had a bowel movement. She ambulated without any bleeding. No fever, no vomiting.
Objective Data
-
Labs:
Laboratory Results
03/01/24
07:07
WBC 9.3
Hgb 10.3 L
Hct 30.5 L
Plt Count 176
Vital Signs:
Vital Signs
Temp Pulse Resp BP Pulse Ox
97.5 F 61 18 105/53 95
03/01/24 07:24 03/01/24 07:24 03/01/24 07:24 03/01/24 07:24 03/01/24 07:24
I&O
02/29/24 03/01/24 03/02/24
06:59 06:59 06:59
Intake Total 2280 / 2280 960 / 960
Balance 2280 / 2280 960 / 960
[2024-03-01] MEDS: CITROMA 300 ML PO (11:10)
--- NOTE | 2024-03-01 12:09 | W.PN.UPDATE ---
Update Note
Progress Note Update
no additional bleeding overnight, waiting to have bowel movement, on Miralax
VSS, Hgb stable
R pack in place
OC - dry
A/P Epistaxis
Stable
Ok for d/c from ENT standpoint
Have pt f/u in office or Wednesday for pack removal in office
[2024-03-01 14:41] VITALS: BP 106/59
--- NOTE | 2024-03-01 16:53 | W.DCSUMMARY ---
Discharge Summary
Discharge Data
Date of Admission: 02/26/24
Date of Discharge: 03/01/24
-
Pending Results: No
Hospital Course
Discharge diagnosis:
Epistaxis exacerbated by aspirin and Brilinta
Acute blood loss anemia
Coronary artery disease status post stent placement in September 2023
Dry cough
Constipation
Fungal rash underneath breast folds
Consults: ENT
Hospital course:
58-year-old female with a past medical history of coronary artery disease status post stent placement in September 2023, on aspirin and Brilinta, who was admitted for persistent epistaxis of the right side. Patient had a posterior balloon pack inserted
in the ER. Patient was seen in conjunction with ENT. Her aspirin and Brilinta were held. Her epistaxis improved, but she continued to have intermittent bleeding on and off. Her nasal packing fell out on 02/28/2024, and she started to have
bleeding again. ENT came in that evening, and placed a cotton ball coated with Vaseline into her nose, hemostasis was achieved.
She did have acute blood loss anemia. Her hemoglobin decreased to 10.1, was 11.9 upon admission. She has been recommended to consume foods rich in iron so she can make more blood.
She had constipation, this resolved with laxatives. She also had a fungal rash underneath her breast folds, and was treated with antifungal creams and powder.
Patient ambulated without any recurrence of epistaxis. She is medically stable and cleared by ENT for discharge. She can resume her aspirin 03/02/2024. If there is no bleeding on aspirin, she can resume her Brilinta on 03/04/2024. ENT states she
can remove her nasal packing herself on 03/02/2024. She needs to follow-up with ENT in the office in less than 1 week.
Disposition: Home self-care
Discharge planning: Required 47 minutes
Discharge Plan
-
Patient Disposition: Home (Routine Discharge)
Discharge Diagnosis/Procedures: Persistent epistaxis exacerbated by aspirin and Brilinta, acute blood loss anemia, constipation, fungal rash under left breast fold
Condition: Good
Diet: Low Fat and Low Cholesterol
Activity: As tolerated
Driving Restrictions: As prior to admission
Activity Restrictions/Additional Instructions:
Recommend eating beef, escobar, clams, muscles, and other foods rich in iron so you can make new blood.
You may take out your nasal packing on 03/02/2024.
You can resume aspirin 81 mg daily on 03/02/2024.
If no bleeding on aspirin, you can resume Brilinta 90 mg twice a day on 03/04/2024.
Follow-up with ENT next week, and your primary care doctor in 1 week.
Referrals:
Carlo Fisher CRNP [Family Provider] - in one week
Trey Che MD [Active] - in less than 1 week
Prescriptions:
Continued
aspirin [Colleen Chewable Aspirin] 81 MG tablet,chewable
81 mg PO DAILY
infliximab [Remicade] 100 MG/10 ML recon soln
100 mg IV .[id number]
atorvastatin [Lipitor] 10 mg Tablet
20 mg PO DAILY
Held
Brilinta 90 mg Tablet
90 mg PO BID
Hold Instructions: Resume on 03/04/24.
Discharge Orders:
Discharge Patient (As Directed); Ordered 03/01/24
Ordered By: Sumeet Wallace
Discharge Date and Time
Print Language: TONGAN
[2024-03-01] MEDS: MYCOSTATIN CREAM 1 APPLIC TOPICAL (17:49)
[2024-03-01 19:47] VITALS: BP 136/60
--- NOTE | 2024-03-01 20:28 | PTCARENOTE ---
pt brought down to ED entrance in wheelchair for d/c with all belongings
== END 2024-03-01 20:10 | disposition home or self-care (01) | DRG 813 ==
LOC: 3 WEST ACU 10:35
PROVIDERS: ADMITTING PHYSICIAN Hospitalist; ATTENDING PHYSICIAN Family Medicine; CONSULT PHYSICIAN Otolaryngology Facial Plastic Surgery; EMERGENCY PHYSICIAN Student in an Organized Health Care Education/Training Program; FAMILY PHYSICIAN Nurse Practitioner Family
DX: D68.32 Hemorrhagic disorder due to extrinsic circulating anticoagulants (principal); D62 Acute posthemorrhagic anemia; I25.10 Atherosclerotic heart disease of native coronary artery without angina pectoris; Z95.5 Presence of coronary angioplasty implant and graft; K59.00 Constipation, unspecified; B36.9 Superficial mycosis, unspecified; R04.0 Epistaxis
CPT/HCPCS: 30901; 80048; 80053; 85025; 85027; 85610; 85730; 86850; 86900; 86901; 96374; 96375; 99284

== ENCOUNTER → 2025-03-23 08:55 | Outpatient (REF) | payer BC, SELFPAY | LOC: HWRAD 08:55 | PROVIDERS: ATTENDING PHYSICIAN Internal Medicine | DX: R05.8 Other specified cough (principal) | CPT/HCPCS: 71046 ==